=== PATIENT | male | born 1990 | race Caucasian/White ===

== ENCOUNTER 2021-09-06 16:14 | Emergency (ER) | payer SELFPAY ==
--- NOTE | 2021-09-06 16:57 | EDM.PDOC ---
ED HPI GENERAL MEDICAL PROBLEM - General Stated Complaint: COVID SYMPTOMS [id number] Time Seen by Provider: 09/06/21 16:45 Source of Information: Reports: Patient History Limitations: Reports: No Limitations - History of Present Illness INITIAL COMMENTS - FREE TEXT/NARRATIVE: This is a 31 year old male that presents to the ED with COVID type symptoms that began 11 days ago. Patient had loss of taste and smell, fever, chills, and bodyaches. Patient had concerns coming to the ED as his taste and smell had not returned. Denies difficulty breathing. Has had intermittent body aches and headache. States he has not officially been tested since symptom onset. Onset: Gradual Duration: Day(s): (11) Location: Reports: Generalized Quality: Reports: Ache Severity: Mild Improves with: Reports: None Worsens with: Reports: None Associated Symptoms: Reports: Fever/Chills, Headaches, Weakness - Related Data Allergies Allergy/AdvReac Type Severity Reaction Status Date / Time No Known Allergies Allergy Verified 09/06/21 16:31 Home Meds: Home Meds . [No Known Home Meds] 09/06/21 [History] Past Medical History Genitourinary History: Reports: Other (See Below) Other Genitourinary History: "kidney disease" Social & Family History - Tobacco Use Tobacco Use Status *Q: Current Every Day Tobacco User Years of Tobacco use: 5 Packs/Tins Daily: 0.5 - Caffeine Use Caffeine Use: Reports: Coffee, Soda - Recreational Drug Use Recreational Drug Use: No ED ROS GENERAL - Review of Systems Review Of Systems: See Below Constitutional: Reports: Fever, Chills, Fatigue, Other (loss of taste and smell) HEENT: Reports: No Symptoms. Denies: Throat Pain Respiratory: Reports: Cough. Denies: Shortness of Breath, Wheezing Cardiovascular: Reports: Dyspnea on Exertion. Denies: Chest Pain, Lightheadedness, Syncope Endocrine: Reports: Fatigue GI/Abdominal: Denies: Abdominal Pain, Constipation, Diarrhea, Decreased Appetite, Nausea, Vomiting : Denies: Discharge, Dysuria, Flank Pain Musculoskeletal: Reports: Other (generalized body aches) Skin: Denies: Cyanosis Neurological: Reports: Headache. Denies: Confusion Psychiatric: Reports: No Symptoms Hematologic/Lymphatic: Reports: No Symptoms Immunologic: Reports: No Symptoms ED EXAM, GENERAL - Physical Exam Exam: See Below Exam Limited By: No Limitations General Appearance: Alert, WD/WN, No Apparent Distress Nose: Normal Inspection, No Blood Throat/Mouth: Normal Inspection, Normal Lips, Normal Voice, No Airway Compromise Head: Atraumatic, Normocephalic Neck: Normal Inspection, Supple, Non-Tender Respiratory/Chest: No Respiratory Distress, Lungs Clear, Normal Breath Sounds. No: Respiratory Distress, Crackles, Rales, Rhonchi, Wheezing Cardiovascular: Normal Peripheral Pulses, Regular Rate, Rhythm, No Gallop, No Murmur, No Rub GI/Abdominal: Normal Bowel Sounds, Soft, Non-Tender, No Distention (Male) Exam: Deferred Rectal (Males) Exam: Deferred Back Exam: Normal Inspection Extremities: Normal Inspection, Normal Range of Motion, No Pedal Edema Neurological: Alert, Oriented, CN II-XII Intact (grossly intact), Normal Cognition, Normal Gait Psychiatric: Normal Affect, Normal Mood Skin Exam: Warm, Dry, Intact Lymphatic: No Adenopathy Course - Vital Signs Last Recorded V/S: Last Vital Signs Temp 98.0 F 09/06/21 16:32 Pulse 65 09/06/21 16:32 Resp 20 09/06/21 16:32 BP 135/92 H 09/06/21 16:32 Pulse Ox 97 09/06/21 16:32 - Orders/Labs/Meds Labs: Laboratory Tests 09/06/21 Range/Units 16:25 SARS CoV-2 RNA Rapid NICOL Negative (NEGATIVE) - Re-Assessments/Exams Free Text/Narrative Re-Assessment/Exam: This is a 31 year old male that has had COVID type symptoms for the past 11 days. Physical exam consistent with COVID. A rapid COVID test was completed and was negative. Patient has had symptoms for more than 10 days which could be possibility of the negative result. Discussed in great detail with the patient symptoms of COVID and potential treatment options. Due to onset of symptoms patient does not qualify for monoclonal antibody therapy. At this time patient is best to manage his symptoms at home with Tylenol and ibuprofen for pain or fever. Maintain adequate oral hydration. Activity as tolerated and rest as needed. Discussed the fatigue and loss of taste could persist for quite sometime. Patient stated and understanding. May return or call if any questions or worsening condition. Departure - Departure Time of Disposition: 16:54 Disposition: Home, Self-Care 01 Condition: Good Clinical Impression: COVID-19 Fatigue Qualifiers: Fatigue type: unspecified Qualified Code(s): R53.83 - Other fatigue - Discharge Information *PRESCRIPTION DRUG MONITORING PROGRAM REVIEWED*: Not Applicable *COPY OF PRESCRIPTION DRUG MONITORING REPORT IN PATIENT LIDYA: Not Applicable Instructions: Fatigue, Symptoms of COVID-19 - [facility] (11/21/2020) Referrals: Duarte Young MD [Primary Care Provider] - Forms: ED Department Discharge Additional Instructions: 1. Stay hydrated by drinking plenty of fluids. 2. Activity as tolerated and rest as needed. 3. May take Tylenol and ibuprofen following directions on the bottle. 4. Symptoms may persist for quite some time including the loss of taste and smell. 5. May call or return if symptoms are worsening or develops significant breathing problems. Sepsis Event Note (ED) - Evaluation Sepsis Screening Result: No Definite Risk - Focused Exam Vital Signs: Vital Signs Temp Pulse Resp BP Pulse Ox 09/06/21 16:32 98.0 F 65 20 135/92 H 97
== END 2021-09-06 17:00 | disposition home or self-care (01) ==
LOC: CC.ED 16:14
DX: U07.1 COVID-19 (principal); R53.83 Other fatigue; Z72.0 Tobacco use
CPT/HCPCS: 99284; U0002

== ENCOUNTER 2022-03-13 21:52 | Emergency (ER) | payer MEDICAID, OTHER ==
[2022-03-13] MEDS: Ketorolac 60 MG/2 ML SDV IM ONE (22:44)
[2022-03-13] MEDS: Take Home: Amoxicillin/Clavulanate K 875-125 MG Tab, 2 Tab Pack PO ONE (22:46)
== END 2022-03-13 22:56 | disposition home or self-care (01) ==
LOC: CC.ED 21:52
DX: J01.90 Acute sinusitis, unspecified (principal); K02.9 Dental caries, unspecified; F17.210 Nicotine dependence, cigarettes, uncomplicated; Z79.899 Other long term (current) drug therapy
CPT/HCPCS: 96372; 99282; 99283; A9270-GY; J1885

== ENCOUNTER 2023-11-12 14:20 | Emergency (ER) | payer SELFPAY | END 2023-11-12 14:47 | disposition home or self-care (01) | LOC: CC.ED 14:20 | DX: J01.90 Acute sinusitis, unspecified (principal); K02.9 Dental caries, unspecified; F17.210 Nicotine dependence, cigarettes, uncomplicated | CPT/HCPCS: 99283 ==

== ENCOUNTER 2024-03-18 12:03 | Emergency (ER) | payer MEDICAID | END 2024-03-18 12:23 | disposition home or self-care (01) | LOC: CC.ED 12:03 | DX: K04.7 Periapical abscess without sinus (principal); F17.210 Nicotine dependence, cigarettes, uncomplicated | CPT/HCPCS: 99283 ==

== ENCOUNTER 2024-06-08 12:25 | Emergency (ER) | payer MEDICAID ==
[2024-06-08] MEDS: Ketorolac 30 MG/ML SDV IM ONE (13:02)
[2024-06-08] MEDS: Orphenadrine 60 MG/2 ML Inj IM ONE (13:02)
== END 2024-06-08 13:10 | disposition home or self-care (01) ==
LOC: CC.ED 12:25
DX: S46.812A Strain of other muscles, fascia and tendons at shoulder and upper arm level, left arm, initial encounter (principal); F17.200 Nicotine dependence, unspecified, uncomplicated; Z79.899 Other long term (current) drug therapy; X50.0XXA Overexertion from strenuous movement or load, initial encounter; Y99.0 Civilian activity done for income or pay
CPT/HCPCS: 96372; 99283; J1885; J2360

== ENCOUNTER 2024-07-09 18:42 | Emergency (ER) | payer MEDICAID ==
[2024-07-09] MEDS: Take Home: Sulfamethoxazole/Trimethoprim 800-160 MG Tab, 6 Tab Pack PO ONE (19:31)
== END 2024-07-09 19:38 | disposition home or self-care (01) ==
LOC: CC.ED 18:42
DX: L73.9 Follicular disorder, unspecified (principal); L21.9 Seborrheic dermatitis, unspecified; F17.200 Nicotine dependence, unspecified, uncomplicated
CPT/HCPCS: 99283; A9270-GY

== ENCOUNTER 2024-09-02 18:10 | Emergency (ER) | payer MEDICAID ==
[2024-09-02] MEDS: Lidocaine 1% 5 ML VIAL INJECT ONE (18:24)
[2024-09-02] MEDS ORDERED: Bacitracin/Neomycin/Polymyxin B Oint 28.4 GM Tube TOP ONE (18:43)
[2024-09-02] MEDS: Bacitracin/Neomycin/Polymyxin B Oint 0.9 GM U/D Packet TOP ONE (18:48)
== END 2024-09-02 18:55 | disposition home or self-care (01) ==
LOC: CC.ED 18:10
DX: S61.211A Laceration without foreign body of left index finger without damage to nail, initial encounter (principal); W29.0XXA Contact with powered kitchen appliance, initial encounter
CPT/HCPCS: 12001; 99282; A9270-GY; J3490

== ENCOUNTER 2025-03-07 14:17 | Emergency (ER) | payer MEDICAID ==
[2025-03-07] MEDS: Acetaminophen 500 MG Tab PO ONE (14:38)
[2025-03-07] MEDS: Take Home: Amoxicillin/Clavulanate K 875-125 MG Tab, 2 Tab Pack PO ONE (14:53)
== END 2025-03-07 15:00 | disposition home or self-care (01) ==
LOC: CC.ED 14:17
DX: J02.9 Acute pharyngitis, unspecified (principal)
CPT/HCPCS: 99283; A9270-GY

== ENCOUNTER 2025-07-18 15:53 | Emergency (ER) | payer MEDICAID ==
[2025-07-18] MEDS: Take Home: Ketorolac 10 MG Tab, 4 Tab Pack PO ONE (16:22)
[2025-07-18] MEDS: cefTRIAXone 1 GM, Lidocaine 1% 2.1 ML IM SCH (16:27)
[2025-07-18] MEDS: Ketorolac 30 MG/ML SDV IM ONE (16:28)
== END 2025-07-18 17:00 | disposition home or self-care (01) ==
LOC: CC.ED 15:53
DX: K08.89 Other specified disorders of teeth and supporting structures (principal); Z79.899 Other long term (current) drug therapy
CPT/HCPCS: 96372; 99282; 99283; A9270-GY; J0696; J1885; J2003

== ENCOUNTER 2025-08-01 21:23 | Emergency (ER) | payer MEDICAID ==
[2025-08-01] MEDS: cefTRIAXone 1 GM, Lidocaine 1% 2.1 ML IM STA (21:48)
[2025-08-01] MEDS: Ketorolac 30 MG/ML SDV IM ONE (21:49)
== END 2025-08-01 22:00 | disposition home or self-care (01) ==
LOC: CC.ED 21:23
DX: K04.7 Periapical abscess without sinus (principal); F17.200 Nicotine dependence, unspecified, uncomplicated; Z79.899 Other long term (current) drug therapy
CPT/HCPCS: 96372; 99283; J0696; J1885; J2003

== ENCOUNTER 2025-08-02 09:48 | Emergency (ER) | payer MEDICAID ==
[2025-08-02] MEDS: Iopamidol 755 Mg/ML 100 ML Bottle IVPUSH ONE (10:20)
[2025-08-02] MEDS: Ketorolac 30 MG/ML SDV IVPUSH ONE (10:48)
== END 2025-08-02 12:03 | disposition home or self-care (01) ==
LOC: CC.ED 09:48
DX: K04.7 Periapical abscess without sinus (principal); L03.211 Cellulitis of face; F17.200 Nicotine dependence, unspecified, uncomplicated; Z79.899 Other long term (current) drug therapy
CPT/HCPCS: 70487; 96374; 96375; 99283; 99283-25; J0696; J1885; J7030; Q9967